=== PATIENT | male | born 1970 | race Caucasian/White ===

== ENCOUNTER → 2021-02-25 | Day surgery (SDC) | payer MEDICARE ==
[~2021-02-25] MED LIST: Lidocaine 1% PF 5 ML VIAL ONE; Sodium Bicarbonate 2.5 MEQ/5 ML VIAL ONE
[2021-02-25 11:12] VITALS: BP 110/76; TEMP 98
== END ==
LOC: CSHRAD 09:08
PROVIDERS: ATTEND Neurological Surgery
DX: M50.30 Other cervical disc degeneration, unspecified cervical region (principal); Z98.1 Arthrodesis status
CPT/HCPCS: 62302; 72126